=== PATIENT | male | born 1955 | race Caucasian/White ===

== ENCOUNTER 2018-07-03 19:44 | Emergency (ER) | payer SELFPAY ==
[~2018-07-03] VITALS: Ht 180.3 cm; Wt 102.3 kg
[2018-07-03 19:46] VITALS: Ht 180.3 cm; Wt 102.3 kg
[2018-07-03] MEDS ORDERED: LISINOPRIL5 MG (19:51)
[2018-07-03] MEDS ORDERED: ZOLOFT25 MG (19:51)
[2018-07-03] MEDS ORDERED: GLUCOPHAGE1000 MG (19:51)
[2018-07-03 20:03] LABS: BASOPHILS 0.3 % (0-2); EOSINOPHILS 0.8 % (0-7); HEMATOCRIT 42.4 % (42.0-54.0); HEMOGLOBIN 15.2 g/dL (13.5-17.5); IMMATURE GRANULOCYTES 0.1 % (0-5); LYMPHOCYTES 19.7 % (15-50); MCH 29.1 pg (26.0-34.0); MCHC 35.8 g/dL (31.0-37.0); MCV 81.2 fL (80.0-100.0); MEAN PLATELET VOLUME 9.8 fL (7.4-10.4); MONOCYTES 7.8 % (2-11); NEUTROPHILS 71.3 % (40-80); PLATELET COUNT 152 10x3/uL (130-400); RBC 5.22 10x6/uL (4.20-6.10); RDW 13.5 % (11.5-14.5); WBC 7.2 10x3/uL (4.8-10.8)
[2018-07-03 20:28] LABS: APTT 25.4 SECONDS (22.8-39.4); INR 0.96 (0.85-1.17); PROTIME 12.7 SECONDS (11.6-15.0)
[2018-07-03 20:40] LABS: ALBUMIN 3.8 g/dL (3.4-5.0); ALKALINE PHOSPHATASE 51 U/L (46-116); ALT (SGPT) 42 U/L (10-68); BILIRUBIN - TOTAL 0.83 mg/dL (0.2-1.3); CALC OSMOLALITY 285 mosm/kg (275-300); CARBON DIOXIDE 24.8 mmol/L (21.0-32.0); CHLORIDE - SERUM 102 mmol/L (98-107); CREATININE - SERUM 1.2 mg/dL (0.6-1.3); POTASSIUM - SERUM 4.2 mmol/L (3.5-5.1); PROTEIN - SERUM 7.3 g/dL (6.4-8.2); SODIUM 138 mmol/L (136-145); UREA NITROGEN 23 mg/dL (7-18); eGFR NON AFRICAN AMERICAN 64 mL/min (90-120)
[2018-07-03 20:41] LABS: GLUCOSE 199 mg/dL (74-106)
[2018-07-03 21:05] LABS: CREATINE KINASE 63 UL (21-232); MAGNESIUM - SERUM 2.1 mg/dL (1.8-2.4); TROPONIN-I < 0.017 ng/mL (0.000-0.060)
[2018-07-03 23:05] VITALS: BP 171/87
== END 2018-07-03 21:45 | disposition home or self-care (01) ==
LOC: D.ER 19:44
PROVIDERS: Family Medicine
DX: R07.9 Chest pain, unspecified (principal); E11.9 Type 2 diabetes mellitus without complications; I10 Essential (primary) hypertension

== ENCOUNTER → 2018-11-08 08:14 | Outpatient (CLI) | payer MEDICARE, OTHER ==
[2018-07-03 19:46] VITALS: BMI 31.4
--- NOTE | ~2018-11-08 | ST ---
PATIENT:TERESA IRWIN JR MEDICAL RECORD: [id number] SEX: M LOCATION:[facility] ORDER #: ADMISSION DATE: 11/08/18 AGE OF PATIENT: 63 REFERRING PHYSICIAN: INTERPRETING PHYSICIAN: CHRIS HUMPHRIES MD DATE OF SERVICE: 11/08/2018 INDICATIONS: Angina, hypertension, hyperlipidemia, and diabetes. He was exercised on standard [place]den protocol for 10 minutes achieving greater than 85% of maximum target heart rate response with 30 mCi of sestamibi injected at peak stress, 8 mCi used previously for rest images. FINDINGS: Gated SPECT reveals preserved ejection fraction at 51% with good wall motion and thickening and brightening throughout all segments. SPECT Imaging: Cardiolite was used as myocardial fusion agent. There is homogeneous uptake throughout all segments at rest and stress with no evidence of inducible ischemia or previous infarction. OVERALL IMPRESSION: 1. This is a normal nuclear stress test with no evidence of inducible ischemia or previous infarction. 2. Gated SPECT reveals a preserved ejection fraction at 51%. In this patient with ongoing symptomatology, the current scan does not suggest the presence of hemodynamically significant coronary artery disease. Evaluate noncardiac etiology of chest pain. TRANSINT:[id number] Voice Confirmation ID: [id number] DOCUMENT ID: [id number] CHRIS HUMPHRIES MD CC: MELYSSA STUART [id number] DICTATION DATE: 11/09/18 1142 MONOTYPE CASTER: 11/10/18 0019 DEP CLI 11/08/18 [id number] [place] [address]
[~2018-11-08 08:14] MED LIST: GLUCOPHAGE1000 MG; LISINOPRIL5 MG; ZOLOFT25 MG
== END | disposition home or self-care (01) ==
LOC: D.HCCARDIO 11-03 10:00
PROVIDERS: ATTEND Internal Medicine Interventional Cardiology
DX: I20.9 Angina pectoris, unspecified (principal)